=== PATIENT | female | born 1950 | race Hispanic/Latino ===

== ENCOUNTER 2022-01-11 16:52 | Emergency (ER) | payer OTHER ==
[~2022-01-11] VITALS: Ht 152.4 cm; Wt 83.0 kg
[2022-01-11] MEDS ORDERED: TETANUS/DIPHTHERIA TOXOID [ADULT] 0.5 ML VIAL IM ONE (17:30)
[2022-01-11] MEDS ORDERED: AMOX/CLAV 875/125MG TAB PO ONE (17:30)
[2022-01-11] MEDS ORDERED: AMOX1TAB16 PO (18:15)
[2022-01-11 18:22] VITALS: BP 142/71
== END 2022-01-11 18:22 | disposition home or self-care (01) ==
LOC: EDH 16:52
DX: S61.552A Open bite of left wrist, initial encounter (principal); W54.0XXA Bitten by dog, initial encounter; Y93.89 Activity, other specified; Y92.89 Other specified places as the place of occurrence of the external cause; Y99.8 Other external cause status
CPT/HCPCS: 73100; 90471; 90714

== ENCOUNTER → 2022-09-19 | Outpatient (CLI) | payer OTHER ==
[~2022-09-19] MED LIST: AMOX1TAB16 PO
== END | disposition home or self-care (01) ==
LOC: RAH 12:47
PROVIDERS: ATTEND Internal Medicine
DX: Z12.31 Encounter for screening mammogram for malignant neoplasm of breast (principal)
CPT/HCPCS: 77067

== ENCOUNTER 2023-02-18 10:26 | Emergency (ER) | payer OTHER ==
[~2023-02-18] VITALS: Ht 152.4 cm; Wt 77.1 kg
[2023-02-18] MEDS ORDERED: ACET-2123 PO (12:41)
[2023-02-18 13:00] VITALS: BP 126/80; PULSE 68; RESP 18; O2SAT 98
== END 2023-02-18 13:10 | disposition home or self-care (01) ==
LOC: EDH 10:26
DX: S00.03XA Contusion of scalp, initial encounter (principal); I10 Essential (primary) hypertension; E11.9 Type 2 diabetes mellitus without complications; E78.00 Pure hypercholesterolemia, unspecified; E66.9 Obesity, unspecified; Z88.8 Allergy status to other drugs, medicaments and biological substances; W18.39XA Other fall on same level, initial encounter; Y93.89 Activity, other specified; Y92.89 Other specified places as the place of occurrence of the external cause; Y99.8 Other external cause status
CPT/HCPCS: 70450; 72125